=== PATIENT | male | born 1995 | race Caucasian/White ===

== ENCOUNTER 2017-09-12 22:32 | Emergency (ER) | payer SELFPAY ==
[~2017-09-12] VITALS: Ht 170.2 cm; Wt 80.6 kg
[2017-09-12 22:34] VITALS: Ht 170.2 cm; Wt 80.6 kg
[2017-09-12] MEDS ORDERED: KETOROLAC 60 MG INJ IM STA (22:45)
--- NOTE | 2017-09-12 23:12 | RADRPT ---
PROCEDURE: Chest. CLINICAL INDICATION: Chest pain. TECHNIQUE: Single frontal view of the chest was obtained. COMPARISON: None. FINDINGS: The cardiac silhouette is within normal limits. The aortic arch is unremarkable. There is no focal consolidation, vascular congestion or pleural effusion. There is no pneumothorax. IMPRESSION: No evidence for active cardiopulmonary disease. .Tiago Vargas MD, MD Date Time Electronically viewed and signed by .Tiago Vargas MD, on 09/12/2017 23:11 .T/
[2017-09-13 00:07] LABS: UR RBC 1 /HPF (0-5)
[2017-09-13 00:08] LABS: ADD UMIC NO; UR ASCORBIC ACID NEGATIVE (NEGATIVE); UR BILIRUBIN (Dip) NEGATIVE (NEGATIVE); UR BLOOD (Dip) NEGATIVE (NEGATIVE); UR CLARITY CLEAR (CLEAR); UR COLOR YELLOW (YELLOW); UR GLUCOSE (Dip) NEGATIVE (NEGATIVE); UR KETONES (Dip) NEGATIVE (NEGATIVE); UR LEUKOCYTE ESTERASE (Dip) NEGATIVE Leu/ul (NEGATIVE); UR NITRITE (Dip) NEGATIVE (NEGATIVE); UR SPECIFIC GRAVITY (Dip) 1.026 (1.003-1.030); UR TOTAL PROTEIN (Dip) NEGATIVE (NEGATIVE); UR UROBILINOGEN (Dip) NEGATIVE (NEGATIVE)
[2017-09-13] MEDS ORDERED: IBUP-1542 PO (00:39)
--- NOTE | 2017-09-13 01:25 | ERD ---
ER Documentation Chief Complaint Chief Complaint back pain x 1 week, denies injury HPI 22-year-old male patient with no significant past medical history presents to the ED complaining of right sided back pain as well as chest pain when he breathes started about 2 days ago. Describes the pain as sharp and rates it a 6 out of 10. States that he did not take any medications. Denies any recent traveling. Denies any leg swelling. Denies any cough, fever, chills, shortness of breath, wheezing, abdominal pain, nausea, vomiting, diarrhea. Denies any heavy lifting. Denies any saddle anesthesia, urine or bowel incontinence.Denies any dysuria, urgency, frequency, hematuria. ROS All systems reviewed and are negative except as per history of present illness. Medications Home Meds Active Scripts Ibuprofen* (Motrin*) 600 Mg Tab, 600 MG PO Q6, #30 TAB Prov:AYDEE BOURGEOIS PA-C 09/13/17 Allergies Allergies: Coded Allergies: No Known Allergy (Verified , 11/09/13) PMhx/Soc History of Surgery: No Anesthesia Reaction: No Hx Neurological Disorder: No Hx Respiratory Disorders: No Hx Cardiac Disorders: No Hx Psychiatric Problems: No Hx Miscellaneous Medical Probl: No Hx Alcohol Use: No Hx Substance Use: No Hx Tobacco Use: No Smoking Status: Never smoker Physical Exam Vitals Vital Signs Date Time Temp Pulse Resp B/P Pulse Ox O2 Delivery O2 Flow Rate FiO2 09/12/17 22:34 98.1 64 20 122/72 100 Physical Exam Const: [id number], well-nourished. In no acute distress. Head: Atraumatic, normocephalic Eyes: Normal Conjunctiva without injection. No purulent discharge. ENT: Normal external ear, nose. Moist oropharynx without tonsillar exudates. Non -erythematous pharynx. Uvula midline. No drooling. No trismus. Neck: No cervical midline tenderness. Full range of motion. No meningismus. No cervical lymphadenopathy. No JVD. Resp: Clear to auscultation bilaterally. No wheezing, rhonchi, rales, or crackles. No accessory muscle use. No retractions. Cardio: Regular rate and rhythm. No murmurs, rubs or gallops. Abd: Soft, nontender, non distended. Normal bowel sounds. No palpable masses. No rebound tenderness. No guarding. Negative McBurney's point. Negative psoas sign. Negative obturator sign. Skin: No petechiae or rashes Back: No midline tenderness. No CVA tenderness. Ext: No cyanosis, or edema. Neur: Awake and alert. Normal gait. Normal coordination. Psych: Normal Mood and Affect Results 24 hrs Laboratory Tests Test 09/12/17 23:00 Urine Color YELLOW Urine Clarity CLEAR Urine pH 5.0 Urine Specific [place] 1.026 Urine Ketones NEGATIVEmg/dL Urine Nitrite NEGATIVEmg/dL Urine Bilirubin NEGATIVEmg/dL Urine Urobilinogen NEGATIVEmg/dL Urine Leukocyte Esterase NEGATIVELeu/ul Urine Microscopic RBC 1/HPF Urine Microscopic WBC 0/HPF Urine Hemoglobin NEGATIVEmg/dL Urine Glucose NEGATIVEmg/dL Urine Total Protein NEGATIVEmg/dl Current Medications Medications (Trade) Dose Ordered Sig/Rosa Route PRN Reason Start Time Stop Time Status Last Admin Dose Admin Ketorolac Tromethamine (Toradol) 60 mg ONCE STAT IM 09/12/17 22:45 09/12/17 22:49 DC 09/12/17 23:04 Procedures/MDM 22-year-old male patient with no significant past medical history presents to the ED complaining of back pain and chest pain that started intermittently for the last 2 days. Patient is afebrile and nontoxic-appearing. An EKG, chest x- ray, UA was ordered to further evaluate patient. Urinalysis shows no evidence of leukocyte esterase, nitrite, hematuria. Low suspicion for urinary tract infection, pyelonephritis. Patient was treated here in the ED with Toradol 60 IM with improvement of his symptoms. PROCEDURE: Chest. CLINICAL INDICATION: Chest pain. TECHNIQUE: Single frontal view of the chest was obtained. COMPARISON: None. FINDINGS: The cardiac silhouette is within normal limits. The aortic arch is unremarkable. There is no focal consolidation, vascular congestion or pleural effusion. There is no pneumothorax. IMPRESSION: No evidence for active cardiopulmonary disease. EKG reviewed and interpreted by Dr. Caraballo Rate/Rhythm: [60 bpm, Normal Sinus Rhythm] No ectopy, no ST elevations, normal axis. Early Reporalization noted. QRS, ST, T-waves: [No changes consistent w/ acute ischemia] Impression: [No evidence of ischemia or arrhythmia] Low suspicion for acute myocardial infarction, pneumothorax, pneumonia, cardiac tamponade, Sqzbg-Lbecmcmwa-Pepbl Syndrome, Brugada Syndrome, pulmonary embolism , AAA, aortic dissection, thoracic aortic dissection, endocarditis, pericarditis , cocaine-related ischemia, Boerhaave's syndrome, cardiac dysrhythmias, meningitis, intracranial bleed, seizure, stroke, TIA or other emergent conditions. Discharge medications: Ibuprofen Follow up with primary care physician in 1-2 days. Instructed patient to return to the ED sooner for any worsening symptoms. Patient's questions were answered. Patient understood and agreed with discharge plan. Patient discharged stable. Departure Diagnosis: Primary Impression: Back pain Back pain location: back pain in unspecified location Chronicity: unspecified Back pain laterality: unspecified Qualified Code: M54.9 - Back pain, unspecified back location, unspecified back pain laterality, unspecified chronicity Additional Impression: Chest pain Chest pain type: unspecified Qualified Code: R07.9 - Chest pain, unspecified type Condition: Stable Patient Instructions: Back Pain (Acute Or Chronic), Chest Wall Pain, Costochondritis Referrals: [facility] YOU HAVE RECEIVED A MEDICAL SCREENING EXAM AND THE RESULTS INDICATE THAT YOU DO NOT HAVE A CONDITION THAT REQUIRES URGENT TREATMENT IN THE EMERGENCY DEPARTMENT. FURTHER EVALUATION AND TREATMENT OF YOUR CONDITION CAN WAIT UNTIL YOU ARE SEEN IN YOUR DOCTORS OFFICE WITHIN THE NEXT 1-2 DAYS. IT IS YOUR RESPONSIBILITY TO MAKE AN APPOINTMENT FOR FOLOW-UP CARE. IF YOU HAVE A PRIMARY DOCTOR --you should call your primary doctor and schedule an appointment IF YOU DO NOT HAVE A PRIMARY DOCTOR YOU CAN CALL OUR PHYSICIAN REFERRAL HOTLINE AT IF YOU CAN NOT AFFORD TO SEE A PHYSICIAN YOU CAN CHOSE FROM THE FOLLOWING [facility] [address] [facility] [address] [facility] [address] [facility] [address] [facility] [address] [facility]. [facility]. [address] [facility]. [facility] YOU HAVE RECEIVED A MEDICAL SCREENING EXAM AND THE RESULTS INDICATE THAT YOU DO NOT HAVE A CONDITION THAT REQUIRES URGENT TREATMENT IN THE EMERGENCY DEPARTMENT. FURTHER EVALUATION AND TREATMENT OF YOUR CONDITION CAN WAIT UNTIL YOU ARE SEEN IN YOUR DOCTORS OFFICE WITHIN THE NEXT 1-2 DAYS. IT IS YOUR RESPONSIBILITY TO MAKE AN APPOINTMENT FOR FOLOW-UP CARE. IF YOU HAVE A PRIMARY DOCTOR --you should call your primary doctor and schedule and appointment IF YOU DO NOT HAVE A PRIMARY DOCTOR YOU CAN CALL OUR PHYSICIAN REFERRAL HOTLINE AT . IF YOU CAN NOT AFFORD TO SEE A PHYSICIAN YOU CAN CHOSE FROM THE FOLLOWING [facility] INSTITUTIONS: [facility] [address] [place] [address] [facility] [address] [place] [address] [facility] [address] [place] [address] [facility] Additional Instructions: Call your primary care doctor TOMORROW for an appointment during the next 2-3 days.See the doctor sooner or return here if your condition worsens before your appointment time. AYDEE BOURGEOIS PA-C Sep 13, 2017 01:25
== END 2017-09-13 01:32 | disposition left against medical advice (07) ==
LOC: FTE 22:32
DX: M54.9 Dorsalgia, unspecified (principal); R07.9 Chest pain, unspecified
CPT/HCPCS: 71010; 81003; 93005; 96372; 99285; J1885

== ENCOUNTER 2017-09-29 15:32 | Emergency (ER) | payer MEDICAID ==
[~2017-09-29] VITALS: Ht 165.1 cm; Wt 80.4 kg
[~2017-09-29 15:32] MED LIST: IBUP-1542 PO
[2017-09-29 15:34] VITALS: Ht 165.1 cm; Wt 80.4 kg
[2017-09-29] MEDS ORDERED: IBUPROFEN 600 MG TAB PO ONE (17:00)
[2017-09-29] MEDS ORDERED: NPH10OT LEFT EAR (17:20)
[2017-09-29] MEDS ORDERED: IBUP-1542 PO (17:21)
--- NOTE | 2017-09-29 17:25 | ERD ---
ER Documentation Chief Complaint Chief Complaint LEFT EAR PAIN, CANT HEAR FROM THIS EAR X 3 DAYS HPI 22-year-old male presents with left ear pain for last 3 days. He also has difficulty hearing. He possibly had some blood. Denies fevers, cough, congestion. ROS All systems reviewed and are negative except as per history of present illness. Medications Home Meds Active Scripts Ibuprofen* (Motrin*) 600 Mg Tab, 600 MG PO Q6, #15 TAB Prov:ADAM MAZARIEGOS MD 09/29/17 Neomycin/Polymyxin/Hydrocort* (Cortisporin* Otic) 10 Ml Susp, 4 DROP LEFT EAR QID for 7 Days, EA Prov:ADAM MAZARIEGOS MD 09/29/17 Ibuprofen* (Motrin*) 600 Mg Tab, 600 MG PO Q6, #30 TAB Prov:AYDEE BOURGEOIS PA-C 09/13/17 Allergies Allergies: Coded Allergies: No Known Allergy (Verified , 11/09/13) PMhx/Soc Medical and Surgical Hx: pt denies Medical Hx, pt denies Surgical Hx History of Surgery: No Anesthesia Reaction: No Hx Neurological Disorder: No Hx Respiratory Disorders: No Hx Cardiac Disorders: No Hx Psychiatric Problems: No Hx Miscellaneous Medical Probl: No Hx Alcohol Use: No Hx Substance Use: No Hx Tobacco Use: No Physical Exam Vitals Vital Signs Date Time Temp Pulse Resp B/P Pulse Ox O2 Delivery O2 Flow Rate FiO2 09/29/17 15:34 99.5 72 18 142/91 98 Physical Exam Const: [] Alert, [id number]. Head: Atraumatic Eyes: Normal Conjunctiva ENT: Normal External Ears, Nose and Mouth. TMs obscured by cerumen. There is some irritation and tenderness in the external auditory canal. There is no mastoid tenderness no significant swelling or erythema of the external ear. Neck: Full range of motion..~ No meningismus. Resp: Clear to auscultation bilaterally Cardio: Regular rate and rhythm, no murmurs Abd: Soft, non tender, non distended. Normal bowel sounds Skin: No petechiae or rashes Back: No midline or flank tenderness Ext: No cyanosis, or edema Neur: Awake and alert Psych: Normal Mood and Affect Results 24 hrs Current Medications Medications (Trade) Dose Ordered Sig/Rosa Route PRN Reason Start Time Stop Time Status Last Admin Dose Admin Ibuprofen (Motrin) 600 mg ONCE ONCE PO 09/29/17 17:00 09/29/17 17:01 DC 09/29/17 17:00 Procedures/MDM Left ear lavage was performed. TM was normal after lavage. Patient presents with signs and symptoms of impacted cerumen with possible mild otitis externa. There is no evidence of mastoiditis, facial cellulitis, additional complications related to complaints. We treated with Cortisporin ibuprofen, further observation at home, primary care follow-up and return precautions. The patient was stable with no new complaints during the ER course. Clinically, there is no current evidence to suggest meningitis, sepsis, acute abdomen, pneumonia, acute coronary syndrome, pulmonary embolism, or any other emergent condition appearing to require further evaluation or hospitalization. The patient should certainly return for any new or worsening symptoms per the aftercare instructions. They should otherwise follow-up with her primary care doctor for reevaluation this week. Departure Diagnosis: Primary Impression: Cerumen impaction Laterality: left Qualified Code: H61.22 - Impacted cerumen of left ear Additional Impression: Left ear pain Condition: Stable Patient Instructions: Ear Wax, Treated, External Ear Infection (Adult) Additional Instructions: Recheck for new or worsening symptoms or with primary care doctor. ADAM MAZAIREGOS MD Sep 29, 2017 17:25
== END 2017-09-29 17:35 | disposition home or self-care (01) ==
LOC: FTE 15:32
DX: H61.22 Impacted cerumen, left ear (principal)
CPT/HCPCS: 69209; Z7610